=== PATIENT | male | born 1965 | race Caucasian/White ===

== ENCOUNTER 2021-09-24 17:01 | Inpatient (IN) | payer BC ==
[~2021-09-24] VITALS: Ht 167.6 cm; Wt 111.6 kg
[2021-09-24] MEDS: NACL 0.9% 1,000 ML IV SCH (00:50)
[2021-09-24 17:19] VITALS: BP_SYST 117
--- NOTE | 2021-09-24 17:22 | NUR ---
Patient to ER bed 04 to gown for evaluation. Side rails up. SBAR Report given to REUBEN Merino
--- NOTE | 2021-09-24 17:35 | NUR ---
Labs Addendum: 09/24/21 at 1838 by [facility] lab at bedside
--- NOTE | 2021-09-24 17:47 | NUR ---
covid swab done and sent to lab
[2021-09-24 18:06] LABS: BASOPHILS % (AUTO) 0.3 % (0.0-2.0); EOSINOPHILS # (AUTO) 0.3 K/uL (0.0-0.4); EOSINOPHILS % (AUTO) 3.7 % (0.0-4.0); HEMOGLOBIN 7.3 g/dL (14.0-18.0); LYMPHOCYTES # (AUTO) 0.3 K/uL (1.0-5.5); LYMPHOCYTES % (AUTO) 3.3 % (20.5-51.5); MEAN CORPUSCULAR HEMOGLOBIN 34 pg (27-31); MEAN CORPUSCULAR HGB CONC 34 % (32-36); MEAN CORPUSCULAR VOLUME 102 fL (79.0-98.0); MONOCYTES # (AUTO) 0.6 K/uL (0.0-1.0); MONOCYTES % (AUTO) 8.4 % (1.7-9.3); NEUTROPHILS # (AUTO) 6.4 K/uL (1.8-7.7); NEUTROPHILS % (AUTO) 84.3 % (40.0-70.0); RED BLOOD CELL COUNT(AUTO) 2.13 MIL/uL (4.2-6.2); RED CELL DISTRIBUTION WIDTH 22.8 % (9.0-15.0); WHITE BLOOD COUNT (AUTO) 7.6 K/uL (4.8-10.8)
[2021-09-24 18:12] LABS: HEMATOCRIT 21.7 % (36-54)
[2021-09-24 18:13] LABS: ANION GAP 6 (5-15); CALCIUM 7.3 mg/dL (8.4-11.0); CHLORIDE 92 mmol/L (98-107); CREATININE 0.95 mg/dL (0.55-1.30); GLUCOSE 131 mg/dL (70-99); POTASSIUM 3.8 mmol/L (3.5-5.1); SODIUM SERUM 126 mmol/L (136-145); UREA NITROGEN, BLOOD 15 mg/dL (8-21)
[2021-09-24 18:14] LABS: GFR AFRICAN AMERICAN 106 mL/min (>90)
[2021-09-24 18:17] LABS: PLATELET COUNT (AUTO) 58 K/uL (130-430)
[2021-09-24 18:18] LABS: INR 1.5 (0.80-1.20); PROTHROMBIN TIME 15.1 SECS (9.5-12.5)
[2021-09-24 18:22] LABS: ALANINE AMINOTRANSFERASE 21 U/L (12-78); ASPARTATE AMINOTRANSFERASE 30 U/L (10-37); TOTAL BILIRUBIN 2.8 mg/dL (0.0-1.0)
--- NOTE | 2021-09-24 18:25 | NUR ---
Patient bib family in wheelchair for c/o sob. Patient A/Ox4, resp even and unlabored. Patient resting comfortabley. No acute distress noted. Vital signs within normal range.
--- NOTE | 2021-09-24 18:40 | NUR ---
ER at bedside
[2021-09-24] MEDS ORDERED: PIPERACILLIN/TAZO 3.375 GM in NS 50 ML IV ONE (19:15)
--- NOTE | 2021-09-24 19:18 | NUR ---
Report given to Megan ALEXIS to assume patient care at this time.
[2021-09-24] MEDS ORDERED: HYDROcodone/ACETAMIN 10-325 MG TAB PO ONE (19:30)
[2021-09-24] MEDS ORDERED: PIPERACILLIN/TAZOBACTAM 3.375 GM/VIAL (ZOSYN) IV ONE (19:39)
--- NOTE | 2021-09-24 20:18 | NUR ---
# 20 gauge angiocath placed to . Use of asceptic technique. Opsite placed over site. Blood return noted. Blood for lab drawn from site. Flushed with 10 cc of normal saline. No evidence of infiltration noted. Patient tolerated well.
--- NOTE | 2021-09-24 21:17 | NUR ---
MED REC NOT DONE DUE TO NOT KNOWING/BRINGING LIST OF MEDICATION AT THIS TIME. STATES SHE WILL BRING LIST TOMORROW.
--- NOTE | 2021-09-24 21:18 | NUR ---
Admit bed requested Patient will be admitted to care of [MARGAR[facility]]. Admitted to [TELE] unit. Diagnosis [TACHYCARDIA, ANEMIA] Inpatient (Yes or No) [YES] Observation (Yes or No) [NO] Orientation concerns or request close to nursing station (Yes or No) [NO] Covid Status [NEG] On vent or bipap [NO] Isolation requirements [NO] Needs a sitter [NO] From Home (Yes or if No enter name of facility) [YES] Requires Dialysis (Yes or No) [NO] Med Rec Completed (Yes of No) [NO]
[2021-09-24] MEDS ORDERED: ONDANSETRON HCL 4 MG/2 ML VIAL IVP PRN (21:45)
[2021-09-24] MEDS ORDERED: ZOLPIDEM TARTRATE 5 MG TABLET PO PRN (21:45)
[2021-09-24] MEDS ORDERED: ACETAMINOPHEN 500 MG TABLET PO PRN (21:45)
[2021-09-24] MEDS ORDERED: guaiFENesin/DEXTROMETHORPHAN 10 ML UDC PO PRN (21:45)
[2021-09-24] MEDS ORDERED: DOCUSATE SODIUM 100 MG/10 ML UDC PO PRN (21:45)
--- NOTE | 2021-09-24 22:28 | NUR ---
PATIENT RESTING IN BED, NO COMPLAINTS OR NEEDS AT THIS TIME. BIG BOY BEDSIDE COMMODE GIVEN TO PATIENT. WAITING FOR BED PLACEMENT. WILL CONTINUE TO MONITOR.
[2021-09-24 22:35] LABS: RETICULOCYTE COUNT 6.6 % (0.5-1.5)
[2021-09-24 23:09] LABS: TOTAL IRON BIND. CAPACITY 159 ug/dL (250-450)
[2021-09-24 23:12] LABS: FREE T4 (FREE THYROXINE) 1.2 ng/dl (0.8-1.5); PHOSPHORUS 2.9 mg/dL (2.7-4.5); THYROID STIMULATING HORMONE 2.14 uIu/mL (0.36-3.74)
[2021-09-24] MEDS: MORPHINE 2 MG/ML INJ. SYRINGE IVP PRN (23:13)
--- NOTE | 2021-09-24 23:20 | NUR ---
PATIENT PLACED BACK INTO BED WITHOUT ISSUE AFTER USING BEDSIDE COMMODE. NO OTHER ISSUES AT THIS TIME.
[2021-09-24 23:25] LABS: BILIRUBIN,URINE 2+ (NEGATIVE); BLOOD, URINE 3+ (NEGATIVE); CLARITY/URINE CLOUDY (CLEAR); COLOR,URINE BROWN (YELLOW); GLUCOSE,URINE TRACE (NEGATIVE); KETONES,URINE TRACE (NEGATIVE); LEUKOCYTE ESTERASE ,URINE NEGATIVE (NEGATIVE); NITRITE, URINE POSITIVE (NEGATIVE); PH,URINE 5.5 (5.0-8.0); PROTEIN URINE 2+ (NEGATIVE)
[2021-09-24 23:37] LABS: RBC,URINE 20-50 /HPF (0-3)
[2021-09-24 23:38] LABS: BACTERIA,URINE MODERATE /HPF (None Seen)
[2021-09-25 00:04] VITALS: BP_SYST 132
[2021-09-25 01:00] VITALS: BP_SYST 116
[2021-09-25 06:40] LABS: CHLORIDE 94 mmol/L (98-107); CREATININE 0.89 mg/dL (0.55-1.30); GLUCOSE 117 mg/dL (70-99); POTASSIUM 4.4 mmol/L (3.5-5.1); SODIUM SERUM 126 mmol/L (136-145); UREA NITROGEN, BLOOD 16 mg/dL (8-21)
[2021-09-25 07:11] LABS: ANION GAP < 3 (5-15); GFR AFRICAN AMERICAN 114 mL/min (>90)
[2021-09-25 07:38] LABS: BASOPHILS % (AUTO) 0.4 % (0.0-2.0); EOSINOPHILS # (AUTO) 0.4 K/uL (0.0-0.4); EOSINOPHILS % (AUTO) 5.4 % (0.0-4.0); LYMPHOCYTES # (AUTO) 0.3 K/uL (1.0-5.5); LYMPHOCYTES % (AUTO) 4.2 % (20.5-51.5); MEAN CORPUSCULAR HEMOGLOBIN 35 pg (27-31); MEAN CORPUSCULAR HGB CONC 34 % (32-36); MEAN CORPUSCULAR VOLUME 102 fL (79.0-98.0); MONOCYTES # (AUTO) 0.6 K/uL (0.0-1.0); MONOCYTES % (AUTO) 9.1 % (1.7-9.3); NEUTROPHILS # (AUTO) 5.7 K/uL (1.8-7.7); PLATELET COUNT (AUTO) 54 K/uL (130-430); RED CELL DISTRIBUTION WIDTH 22.3 % (9.0-15.0)
[2021-09-25 08:00] VITALS: BP_SYST 120
[2021-09-25 08:49] LABS: RED BLOOD CELL COUNT(AUTO) 1.93 MIL/uL (4.2-6.2)
[2021-09-25 08:50] LABS: HEMOGLOBIN 6.7 g/dL (14.0-18.0)
[2021-09-25 08:51] LABS: HEMATOCRIT 19.6 % (36-54)
[2021-09-25 08:52] LABS: NEUTROPHILS % (AUTO) 80.9 % (40.0-70.0)
[2021-09-25] MEDS ORDERED: POTASSIUM CHLORIDE 20 MEQ TAB.PRT.SR PO PRN (09:00)
--- NOTE | 2021-09-25 09:11 | NUR ---
Dr. Malcom Sams called and message left regarding hbg and hct results of 6.7/19.2
[2021-09-25] MEDS: PANTOPRAZOLE SODIUM 40 MG TAB PO SCH (09:31)
[2021-09-25 12:00] VITALS: BP_SYST 121
[2021-09-25] MEDS: MORPHINE 2 MG/ML INJ. SYRINGE IVP PRN ×2 (12:37→20:05)
[2021-09-25] MEDS: HYDROcodone/ACETAMIN 7.5-325 MG TAB PO PRN (14:42)
[2021-09-25 16:00] VITALS: BP_SYST 122
--- NOTE | 2021-09-25 17:03 | NUR ---
PT WAS SEEN FOR DYSPHAGIA. PT WAS ABLE TO SAFELY SWALLOW PUREE DIET WITH HONEY THICK LIQUID. MILD COUGH FOR THIN AND NECTAR THICK LIQUID. RECOMENDATION PUREE DIET WITH HONEY THICK LIQUID FULL ASPIRATION PRECAUTION STOP FEEDING IF PT. CONTINUE TO COUGH
[2021-09-25] MEDS: NACL 0.9% 1,000 ML IV SCH (18:46)
--- NOTE | 2021-09-25 19:15 | NUR ---
OPENING NOTE REPORT RECEIVED FROM DAYSHIFT NURSE. PATIENT RECEIVED LYING IN BED, AWAKE, ALERT, WATCHING TV, NO S/S ACUTE DISTRESS. BREATHING EVEN AND UNLABORED, ON ROOM AIR. IVF INFUSING WELL, IV SITE PATENT, NO SIGNS OF INFILTRATION OR INFECTION NOTED. CALL LIGHT WITH PATIENT. BED ALARM ON. BED IS LOCKED AND AT LOWEST POSITION. WILL CONTINUE TO MONITOR.
[2021-09-25 20:00] VITALS: BP_SYST 132
[2021-09-26] VITALS: BP_SYST 128
--- NOTE | 2021-09-26 06:27 | NUR ---
CLOSING NOTE PATIENT IN BED, NO S/S OF ACUTE DISTRESS. BREATHING EVEN AND UNLABORED. HOB RAISED. IVF INFUSING WELL, IV SITE PATENT, NO SIGNS OF INFILTRATION OR INFECTION NOTED. ALL NEEDS MET THROUGHOUT SHIFT. FALL, SAFETY, PRECAUTIONS MAINTAINED THROUGHOUT SHIFT. WILL CONTINUE TO MONITOR UNTIL PATIENT CARE IS ENDORSED TO ONCOMING DAYSHIFT NURSE.
[2021-09-26] MEDS: NACL 0.9% 1,000 ML IV SCH ×2 (06:30→21:35)
--- NOTE | 2021-09-26 07:20 | NUR ---
OPENING NOTE Patient in bed resting, no sign of distress and denies pain. Patient is aware he will be going for a procedure later this morning. IV is clean, dry, intact, and running prescribed fluids. Nasal cannula in place on 2L, oxygenation 100%. Patient states he still feels short of breath, respirations 18. All needs met at this time and safety checks made.
[2021-09-26 07:29] LABS: INR 1.4 (0.80-1.20); PROTHROMBIN TIME 13.5 SECS (9.5-12.5)
[2021-09-26 07:47] LABS: CREATININE 0.81 mg/dL (0.55-1.30); POTASSIUM 3.2 mmol/L (3.5-5.1)
[2021-09-26] MEDS ORDERED: SIMETHICONE 40 MG/0.6 ML ML ONE (07:48)
[2021-09-26 07:58] LABS: BASOPHILS % (AUTO) 0.5 % (0.0-2.0); EOSINOPHILS # (AUTO) 0.3 K/uL (0.0-0.4); EOSINOPHILS % (AUTO) 4.6 % (0.0-4.0); HEMOGLOBIN 7.4 g/dL (14.0-18.0); LYMPHOCYTES # (AUTO) 0.2 K/uL (1.0-5.5); MEAN CORPUSCULAR HEMOGLOBIN 34 pg (27-31); MEAN CORPUSCULAR HGB CONC 34 % (32-36); MEAN CORPUSCULAR VOLUME 98 fL (79.0-98.0); MONOCYTES # (AUTO) 0.5 K/uL (0.0-1.0); MONOCYTES % (AUTO) 8.3 % (1.7-9.3); NEUTROPHILS # (AUTO) 5.4 K/uL (1.8-7.7); NEUTROPHILS % (AUTO) 83.6 % (40.0-70.0); RED BLOOD CELL COUNT(AUTO) 2.19 MIL/uL (4.2-6.2); RED CELL DISTRIBUTION WIDTH 23.9 % (9.0-15.0); WHITE BLOOD COUNT (AUTO) 6.5 K/uL (4.8-10.8)
[2021-09-26 08:00] VITALS: BP_SYST 126
[2021-09-26 08:06] LABS: FOLATE (FOLIC ACID) 15.9 ng/mL (>3.0)
[2021-09-26] MEDS: MIDAZOLAM HCL 5 MG/5 ML VIAL ONE ×3 (08:14→08:20)
[2021-09-26] MEDS: fentaNYL CITRATE/PF 100 MCG/2 ML AMP ONE ×3 (08:14→08:20)
[2021-09-26] MEDS ORDERED: DIPHENHYDRAMINE INJ 50 MG/ML VIAL ONE (08:23)
[2021-09-26 08:41] LABS: CALCIUM 6.8 mg/dL (8.4-11.0)
--- NOTE | 2021-09-26 08:51 | NUR ---
CRITICAL LAB Calcium 6.8. Notified Dr Sams in person. stated he would input new orders.
[2021-09-26] MEDS: PANTOPRAZOLE SODIUM 40 MG TAB PO SCH (10:03)
--- NOTE | 2021-09-26 10:05 | NUR ---
CRITICAL LABS Received critical labs; platelets 46, hct 21.5. Dr Sams is aware, no new orders at this time.
[2021-09-26 10:06] LABS: HEPATITIS A AB, IgM Negative (Negative); HEPATITIS B CORE AB, IgM Negative (Negative); HEPATITIS B SURFACE AG Negative (Negative)
[2021-09-26 10:07] LABS: HEMATOCRIT 21.5 % (36-54); PLATELET COUNT (AUTO) 46 K/uL (130-430)
[2021-09-26 12:00] VITALS: BP_SYST 138
[2021-09-26 12:48] LABS: FERRITIN 882 ng/mL (30-400)
[2021-09-26 12:49] LABS: ALPHA-1-ANTITRYPSIN, S 258 mg/dL (101-187)
[2021-09-26] MEDS: HYDROcodone/ACETAMIN 7.5-325 MG TAB PO PRN (13:16)
--- NOTE | 2021-09-26 13:16 | NUR ---
PAIN Patient complaining of generalized pain, 09/03. PRN [place] provided. All needs met at this time and safety checks made.
[2021-09-26 14:00] VITALS: BP_SYST 137
--- NOTE | 2021-09-26 14:13 | NUR ---
FALL Patient fell walking back from the restroom with assistance from his son and with a walker. Patient returned to bed utilizing a agapito lift. Patient complains of pain in his right leg. Dr Sams called and new orders received.
[2021-09-26] MEDS ORDERED: CALCIUM CHLORIDE 1 GM/10ML VIAL (13.6 mEq Ca++/VIAL) IV ONE (15:00)
[2021-09-26] MEDS: MORPHINE 2 MG/ML INJ. SYRINGE IVP PRN ×2 (15:32→22:19)
[2021-09-26] MEDS ORDERED: CALCIUM CHLORIDE 1 GM in NS 100 ML IV ONE (15:45)
[2021-09-26 16:00] VITALS: BP_SYST 122
--- NOTE | 2021-09-26 19:00 | NUR ---
CLOSING NOTE Patient in bed resting with at bedside. Patient complaining of pain in his right leg where he fell earlier in the shift. Limb is supported with a pillow and an ice pack was offered but patient refused. IV is patent and running prescribed fluids. and patient updated on the plan of care. is insisting she needs to speak with Dr Sams, informed the that Dr Sams stated he would be speaking with her tomorrow when notified of her request. Patient and family educated on fall prevention including the use of a bedpan rather than ambulating to the restroom. All needs met at this time and safety checks made. Endorsed to [employer] shift lead nurse.
--- NOTE | 2021-09-26 19:25 | NUR ---
Received bedside report from pm nurse after assignment change. pt family () at bedside very upset with pt care at this point. pt voiced her concerns and frustration with not being able to speak with md. pt also upset with care from day shift and with patient falling during the day. reassured pt that charge nurse and house sup would come speak with her when they had a chance.
[2021-09-26 21:39] VITALS: BP_SYST 108
--- NOTE | 2021-09-26 22:23 | NUR ---
pt medicated for /10 with morphine 2mg per emar. system did not require a co signer Addendum: 09/26/21 at 2225 by Lawrence Rowell RN verifed medication with Jenny kingsley
--- NOTE | 2021-09-26 22:30 | NUR ---
charge nurse, house sup and house sup trainee at bedside speaking with patient and patient Addendum: 09/26/21 at 2239 by Lawrence Rowell RN @[phone]
[2021-09-27 00:24] VITALS: BP_SYST 132
[2021-09-27 05:53] VITALS: BP_SYST 113
[2021-09-27] MEDS: MORPHINE 2 MG/ML INJ. SYRINGE IVP PRN ×3 (05:56→21:33)
[2021-09-27 07:01] LABS: BASOPHILS % (AUTO) 0.4 % (0.0-2.0); EOSINOPHILS # (AUTO) 0.4 K/uL (0.0-0.4); EOSINOPHILS % (AUTO) 5.1 % (0.0-4.0); HEMOGLOBIN 7.5 g/dL (14.0-18.0); LYMPHOCYTES # (AUTO) 0.3 K/uL (1.0-5.5); MEAN CORPUSCULAR HEMOGLOBIN 34 pg (27-31); MEAN CORPUSCULAR HGB CONC 34 % (32-36); MEAN CORPUSCULAR VOLUME 99 fL (79.0-98.0); MONOCYTES # (AUTO) 0.7 K/uL (0.0-1.0); NEUTROPHILS % (AUTO) 81.5 % (40.0-70.0); PLATELET COUNT (AUTO) 51 K/uL (130-430); RED BLOOD CELL COUNT(AUTO) 2.22 MIL/uL (4.2-6.2); RED CELL DISTRIBUTION WIDTH 24.3 % (9.0-15.0); WHITE BLOOD COUNT (AUTO) 7.3 K/uL (4.8-10.8)
[2021-09-27 07:29] LABS: CALCIUM 7.6 mg/dL (8.4-11.0); CREATININE 0.88 mg/dL (0.55-1.30); POTASSIUM 3.8 mmol/L (3.5-5.1)
[2021-09-27 08:07] VITALS: BP_SYST 110
[2021-09-27] MEDS: PANTOPRAZOLE SODIUM 40 MG TAB PO SCH (09:10)
[2021-09-27 11:45] VITALS: BP_SYST 115
[2021-09-27 16:31] VITALS: BP_SYST 119
[2021-09-27] MEDS: NACL 0.9% 1,000 ML IV SCH (16:32)
[2021-09-27] MEDS ORDERED: TOLVAPTAN Non-Formulary 15 MG TABLET PO ONE (20:15)
[2021-09-27 23:25] VITALS: BP_SYST 120
[2021-09-28 05:09] VITALS: BP_SYST 118
[2021-09-28 06:44] LABS: CALCIUM 7.3 mg/dL (8.4-11.0); CREATININE 0.9 mg/dL (0.55-1.30); POTASSIUM 4.7 mmol/L (3.5-5.1)
[2021-09-28] MEDS ORDERED: DIATR MEGLU/DIATRIZ SOD 30 ML SOLUTION PO ONE (07:53)
[2021-09-28 07:55] LABS: BASOPHILS % (AUTO) 0.4 % (0.0-2.0); EOSINOPHILS # (AUTO) 0.3 K/uL (0.0-0.4); EOSINOPHILS % (AUTO) 4.2 % (0.0-4.0); HEMOGLOBIN 7.3 g/dL (14.0-18.0); LYMPHOCYTES # (AUTO) 0.3 K/uL (1.0-5.5); MEAN CORPUSCULAR HEMOGLOBIN 34 pg (27-31); MEAN CORPUSCULAR HGB CONC 34 % (32-36); MEAN CORPUSCULAR VOLUME 100 fL (79.0-98.0); MONOCYTES # (AUTO) 0.6 K/uL (0.0-1.0); MONOCYTES % (AUTO) 8.1 % (1.7-9.3); NEUTROPHILS # (AUTO) 6.2 K/uL (1.8-7.7); NEUTROPHILS % (AUTO) 83.3 % (40.0-70.0); PLATELET COUNT (AUTO) 55 K/uL (130-430); RED BLOOD CELL COUNT(AUTO) 2.17 MIL/uL (4.2-6.2); WHITE BLOOD COUNT (AUTO) 7.4 K/uL (4.8-10.8)
--- NOTE | 2021-09-28 08:00 | NUR ---
Patient is in bed with no complainants. patient is awaiting CT scan. Patient skin intact. patient is edema all extremities +4. Patient. patient is IV patent, no swelling or redness. patient is A/Ox4. will monitor.
[2021-09-28 08:34] VITALS: BP_SYST 122
[2021-09-28] MEDS: PANTOPRAZOLE SODIUM 40 MG TAB PO SCH (09:00)
[2021-09-28 09:02] LABS: HEMATOCRIT 21.7 % (36-54)
[2021-09-28] MEDS ORDERED: iohexoL 240 mgI/mL, 150 ML INFUS..BTL IV ONE (09:58)
[2021-09-28] MEDS: NACL 0.9% 1,000 ML IV SCH (10:31)
[2021-09-28 11:06] LABS: LIVER-KIDNEY MICROSOMAL AB 0.8 Units (0.0-20.0)
--- NOTE | 2021-09-28 11:18 | NUR ---
Dietitian Recommendations * Advance diet to Pureed [place] Thick Liquids when medically appropriate. Please refer to Nutrition Assessment for details Addendum: 09/28/21 at [address] Amended: Links added.
--- NOTE | 2021-09-28 13:29 | NUR ---
patient signed AMA. educated patient on the risk of leaving the hospital. patient and agreed.
[2021-09-28 14:04] LABS: RED CELL DISTRIBUTION WIDTH 25.3 % (9.0-15.0)
[2021-09-28] MEDS ORDERED: FUROSEMIDE 40 MG TABLET PO ONE (16:00)
--- NOTE | 2021-09-29 08:18 | NUR ---
Dispo code 07
[2021-09-29 10:45] LABS: ANTI-SMOOTH MUSCLE AB 21 Units (0-19)
[2021-09-29 12:06] LABS: SOLUBLE TRANSFERRIN RECEPTOR 24.9 nmol/L (12.2-27.3)
== END 2021-09-28 17:05 | disposition left against medical advice (07) | DRG 871 ==
LOC: SED 17:01 → STU 19:42
PROVIDERS: ADMIT Family Medicine; ATTEND Family Medicine
PROC: 30233N1 Transfusion of Nonautologous Red Blood Cells into Peripheral Vein, Percutaneous Approach (ICD-10-PCS; 2021-09-25)
PROC: 0DB68ZX Excision of Stomach, Via Natural or Artificial Opening Endoscopic, Diagnostic (ICD-10-PCS; 2021-09-26)
PROC: 0DB58ZX Excision of Esophagus, Via Natural or Artificial Opening Endoscopic, Diagnostic (ICD-10-PCS; principal; 2021-09-26 08:00)
DX: A41.9 Sepsis, unspecified organism (principal); E43 Unspecified severe protein-calorie malnutrition; E87.1 Hypo-osmolality and hyponatremia; N39.0 Urinary tract infection, site not specified; R13.10 Dysphagia, unspecified; D64.9 Anemia, unspecified; R73.9 Hyperglycemia, unspecified; Z20.822 Contact with and (suspected) exposure to COVID-19; E86.0 Dehydration; E83.51 Hypocalcemia; K29.70 Gastritis, unspecified, without bleeding; K21.00 Gastro-esophageal reflux disease with esophagitis, without bleeding; Z79.899 Other long term (current) drug therapy; Z68.39 Body mass index [BMI] 39.0-39.9, adult
CPT/HCPCS: 36415; 36430; 43239; 70450-TC; 71045; 72170-TC; 73030; 76376; 76700-TC; 80048; 80053; 80061; 80074; 81000; 82103; 82150; 82390; 82607; 82728; 82746; 83036; 83516; 83540; 83550; 83690; 83735; 83880; 84100; 84238; 84439; 84443; 84484; 85025; 85044; 85610-TC; 85730-TC; 86376; 86886; 86900; 86901; 86920; 87081; 87086; 88305; 88312; 88313; 92610-GN; 93005; 96365; 99285; G0378; J1200; J2250; J2270; J2543; J3010; P9021; Q9964; Q9966